=== PATIENT | female | born 1955 | race Hispanic/Latino ===

== ENCOUNTER 2017-08-07 09:52 | Day surgery (SDC) | payer MEDICARE ==
[~2017-08-07] VITALS: Ht 154.9 cm; Wt 59.1 kg
[~2017-08-07 09:52] MED LIST: INSU100V12 SQ; LEVO175T9 PO; LISI-613 PO; METF10004 PO; SENN1TAB6 PO; SIMV20TA6 PO; SODIUM CHLORIDE 0.9% 1000ML 1,000 ML IV ONE
[2017-08-07 11:00] VITALS: BP 144/84
[2017-08-07] MEDS ORDERED: PROPOFOL 10 MG/ML 20ML VIAL IV ONE (11:28)
[2017-08-07 11:43] VITALS: BP 101/57
== END 2017-08-07 12:24 | disposition home or self-care (01) ==
LOC: ENDO 09:52 → DAH 09:52 → ENDO 12:24
PROVIDERS: ATTEND Internal Medicine Gastroenterology
DX: Z08 Encounter for follow-up examination after completed treatment for malignant neoplasm (principal); K57.30 Diverticulosis of large intestine without perforation or abscess without bleeding; Z98.0 Intestinal bypass and anastomosis status; Z79.899 Other long term (current) drug therapy; I10 Essential (primary) hypertension; E78.4 Other hyperlipidemia; E11.9 Type 2 diabetes mellitus without complications; E03.8 Other specified hypothyroidism; M19.90 Unspecified osteoarthritis, unspecified site; Z85.038 Personal history of other malignant neoplasm of large intestine; Z86.010 Personal history of colon polyps; Z79.4 Long term (current) use of insulin; Z90.710 Acquired absence of both cervix and uterus
CPT/HCPCS: 82948; A4606; J2704; J7030

== ENCOUNTER → 2022-09-17 | Outpatient (CLI) | payer MEDICARE ==
[~2022-09-17] MED LIST changes: +ASPI-1197 PO; +ATOR40TA69 PO; +CARV6.25 PO; +CHOL100046 PO; +CLOP-31 PO; -INSU100V12 SQ; +Isosorbide Mono 30MG Sr Tab PO; +LEVO175C2 PO; -LEVO175T9 PO; -LISI-613 PO; +LOSA25TA41 PO; -METF10004 PO; +MUPI15CR12 TP; +PANT40TA54 PO; +REGADENOSON 0.4 MG/5 ML PF SYG IVP ONE; +SEMA3TAB4 PO; -SENN1TAB6 PO; -SIMV20TA6 PO; -SODIUM CHLORIDE 0.9% 1000ML 1,000 ML IV ONE
== END | disposition home or self-care (01) ==
LOC: SHCH 08:33
PROVIDERS: ATTEND Internal Medicine Cardiovascular Disease
DX: I21.4 Non-ST elevation (NSTEMI) myocardial infarction (principal)
CPT/HCPCS: 78452; 96374; 93017; J2785; A9500 ×2

== ENCOUNTER 2023-05-07 14:26 | Observation (INO) | payer MEDICARE ==
[~2023-05-07] VITALS: Ht 154.9 cm; Wt 64.8 kg
[~2023-05-07 14:26] MED LIST changes: -REGADENOSON 0.4 MG/5 ML PF SYG IVP ONE
[2023-05-07 15:48] LABS: BASOPHILS # (AUTO) 0.06 K/uL (0.00-0.20); BASOPHILS % (AUTO) 0.3 % (0.0-5.0); EOSINOPHILS # (AUTO) 0.02 K/uL (0.00-0.70); EOSINOPHILS % (AUTO) 0.1 % (0.0-8.0); HEMATOCRIT 30.2 % (36-48); IMMATURE GRANULOCYTE ABSOLUTE 0.21 K/uL (0-1); LYMPHOCYTES % (AUTO) 10.5 % (21.0-51.0); MEAN CORPUSCULAR HEMOGLOBIN 29.7 pg (27.0-33.0); MEAN CORPUSCULAR HGB CONC 33.8 g/dL (32.0-36.0); MONOCYTES # (AUTO) 1.8 K/uL (0.1-1.0); MONOCYTES % (AUTO) 9.9 % (3.0-13.0); NEUTROPHILS # (AUTO) 14.5 K/uL (1.8-7.7); NEUTROPHILS % (AUTO) 78.1 % (40.0-77.0); PLATELET COUNT (AUTO) 301 K/uL (130-400); RED BLOOD CELL COUNT(AUTO) 3.43 MIL/uL (4.00-5.50); WHITE BLOOD COUNT (AUTO) 18.5 K/uL (4.8-10.8)
[2023-05-07 16:03] LABS: CREATININE 1.8 mg/dL (0.5-1.5); POTASSIUM 3.7 mmol/L (3.5-5.1)
[2023-05-07 16:08] LABS: ALBUMIN 2.6 g/dL (3.5-5.0); BILIRUBIN,TOTAL 0.6 mg/dL (0.2-1.0); TOTAL PROTEIN, SERUM 6.1 g/dL (6.0-8.3)
[2023-05-07 16:11] LABS: B-TYPE NATRIURETIC PEPTIDE 2150 pg/mL (0-100)
[2023-05-07] MEDS ORDERED: ASPIRIN 325MG TAB PO ONE (17:00)
[2023-05-07] MEDS ORDERED: ONDANSETRON 4MG INJ IV PRN (19:30)
[2023-05-07] MEDS ORDERED: LACTULOSE 20 GM/30 ML UDCUP PO PRN (19:30)
[2023-05-07] MEDS ORDERED: ACETAMINOPHEN 325 MG TAB PO PRN ×2 (19:30)
[2023-05-07 20:58] LABS: HEMOGLOBIN A1C 8.2 % (4.0-6.0)
[2023-05-07 20:58] LABS: CHOLESTEROL 113 mg/dL (<200); HDL CHOLESTEROL 77 mg/dL (35-85); LDL DIRECT 29 mg/dL (0-99); TRIGLYCERIDES 98 mg/dL (30-200)
[2023-05-07] MEDS: INSULIN HUMULIN R 100 UNIT/ML 3ML SQ SCH (21:00)
[2023-05-07] MEDS: METOPROLOL TARTRATE 25 MG TAB PO SCH (21:10)
[2023-05-07] MEDS: FAMOTIDINE 20MG TAB PO SCH (21:10)
[2023-05-07 22:46] VITALS: O2SAT 99
[2023-05-07] MEDS ORDERED: INSULIN HUMULIN R 100 UNIT/ML 3ML SQ STA (22:48)
[2023-05-07 23:00] VITALS: BP 118/58; PULSE 68; RESP 18
[2023-05-07] MEDS ORDERED: ISOS30TA92 PO (23:07)
[2023-05-07] MEDS ORDERED: AMLO-257 PO (23:10)
[2023-05-07] MEDS ORDERED: SEVE800T7 PO (23:11)
[2023-05-07] MEDS ORDERED: INSU100V3 SQ (23:14)
[2023-05-08] VITALS: BP 118/58; PULSE 68; RESP 18
[2023-05-08 04:00] VITALS: BP 122/59; PULSE 64; RESP 18
[2023-05-08] MEDS: INSULIN HUMULIN R 100 UNIT/ML 3ML SQ SCH ×2 (06:29→12:45)
[2023-05-08 08:00] VITALS: BP 148/72; PULSE 70; RESP 16
[2023-05-08] MEDS: METOPROLOL TARTRATE 25 MG TAB PO SCH (08:31)
[2023-05-08] MEDS: FAMOTIDINE 20MG TAB PO SCH (08:31)
[2023-05-08] MEDS ORDERED: POLYETHYLENE GLYCOL 3350 17 GM POWD.PACK PO SCH (09:00)
[2023-05-08] MEDS ORDERED: ISOSORBIDE MONO 30MG SR TAB PO SCH (09:00)
[2023-05-08] MEDS ORDERED: Vitamin B Complex/Vit C/Folic Acid PO SCH (09:00)
[2023-05-08] MEDS ORDERED: CLOPIDOGREL 75MG TAB PO SCH (09:00)
[2023-05-08] MEDS ORDERED: ASPIRIN 81 MG EC TAB PO SCH (09:00)
[2023-05-08] MEDS ORDERED: ASPIRIN 81MG CHEW TAB PO SCH (09:00)
[2023-05-08] MEDS ORDERED: LEVOFLOXACIN 500 MG/D5W 100 ML 100 ML IV ONE (09:30)
[2023-05-08] MEDS ORDERED: METRONIDAZOLE 500 MG TABLET PO SCH (09:30)
[2023-05-08 09:35] LABS: BASOPHILS # (AUTO) 0.05 K/uL (0.00-0.20); BASOPHILS % (AUTO) 0.4 % (0.0-5.0); EOSINOPHILS # (AUTO) 0.13 K/uL (0.00-0.70); EOSINOPHILS % (AUTO) 1.1 % (0.0-8.0); HEMATOCRIT 29.7 % (36-48); IMMATURE GRANULOCYTE ABSOLUTE 0.06 K/uL (0-1); LYMPHOCYTES # (AUTO) 1.6 K/uL (1.0-4.8); LYMPHOCYTES % (AUTO) 13.5 % (21.0-51.0); MEAN CORPUSCULAR HEMOGLOBIN 29.7 pg (27.0-33.0); MEAN CORPUSCULAR HGB CONC 33.3 g/dL (32.0-36.0); MEAN CORPUSCULAR VOLUME 89.2 fL (79-99); MONOCYTES # (AUTO) 1.6 K/uL (0.1-1.0); MONOCYTES % (AUTO) 13.7 % (3.0-13.0); NEUTROPHILS # (AUTO) 8.2 K/uL (1.8-7.7); NEUTROPHILS % (AUTO) 70.8 % (40.0-77.0); PLATELET COUNT (AUTO) 293 K/uL (130-400); RED BLOOD CELL COUNT(AUTO) 3.33 MIL/uL (4.00-5.50); RED CELL DISTRIBUTION WIDTH 15.3 % (11.0-15.5); WHITE BLOOD COUNT (AUTO) 11.6 K/uL (4.8-10.8)
[2023-05-08 09:44] LABS: CREATININE 2.8 mg/dL (0.5-1.5); POTASSIUM 3.8 mmol/L (3.5-5.1)
[2023-05-08 09:49] LABS: ALBUMIN 2.6 g/dL (3.5-5.0); BILIRUBIN,TOTAL 0.4 mg/dL (0.2-1.0); TOTAL PROTEIN, SERUM 6.8 g/dL (6.0-8.3)
[2023-05-08 12:00] VITALS: BP 124/56; PULSE 66; RESP 18
[2023-05-08] MEDS ORDERED: SEVELAMER HCL 800 MG TABLET PO SCH (12:00)
[2023-05-08] MEDS ORDERED: INSULIN HUMULIN R 100 UNIT/ML 3ML SQ SCH (17:00)
[2023-05-08] MEDS ORDERED: CARVEDILOL 12.5 MG TABLET PO SCH (21:00)
[2023-05-08] MEDS ORDERED: INSULIN GLARGINE 100 UNITS/ML 10 ML VIAL SQ SCH (21:00)
[2023-05-08] MEDS ORDERED: ATORVASTATIN 40 MG TABLET PO SCH (21:00)
[2023-05-08] MEDS ORDERED: AMLODIPINE 5 MG TAB PO SCH (21:00)
[2023-05-08] MEDS ORDERED: ATORVASTATIN 20 MG TABLET PO SCH (21:00)
[2023-05-09] MEDS ORDERED: LEVOTHYROXINE 125 MCG TABLET PO SCH (06:30)
== END 2023-05-08 18:30 | disposition home or self-care (01) ==
LOC: EDH 14:26 → EDHIP 19:24 → UNDOADMOB 19:35 → EDHIP 19:35 → UNDOADMOB 19:36 → EDHIP 19:54 → 4AH 22:23 → EDHIP 22:23
PROVIDERS: ADMIT Hospitalist; ATTEND Hospitalist
DX: I13.2 Hypertensive heart and chronic kidney disease with heart failure and with stage 5 chronic kidney disease, or end stage renal disease (principal); E11.22 Type 2 diabetes mellitus with diabetic chronic kidney disease; I50.33 Acute on chronic diastolic (congestive) heart failure; N18.6 End stage renal disease; E87.70 Fluid overload, unspecified; D72.829 Elevated white blood cell count, unspecified; E87.1 Hypo-osmolality and hyponatremia; E03.9 Hypothyroidism, unspecified; E78.00 Pure hypercholesterolemia, unspecified; F41.9 Anxiety disorder, unspecified; K21.9 Gastro-esophageal reflux disease without esophagitis; I5A Non-ischemic myocardial injury (non-traumatic); K59.00 Constipation, unspecified; Z79.899 Other long term (current) drug therapy; Z85.038 Personal history of other malignant neoplasm of large intestine; Z99.2 Dependence on renal dialysis; Z88.0 Allergy status to penicillin; Z86.718 Personal history of other venous thrombosis and embolism; Z86.16 Personal history of COVID-19
CPT/HCPCS: 83036; 84484 ×3; 80061; 80053 ×2; 83880; 85025 ×2; 82948 ×4; 36415 ×2; 74018; 71045; 93970; 99291; 93005 ×3; 96365; 87040 ×2; J1815 ×2; G0378 ×23; J1956

== ENCOUNTER 2023-05-22 16:47 | Emergency (ER) | payer MEDICARE ==
[~2023-05-22] VITALS: Ht 154.9 cm; Wt 59.9 kg
[~2023-05-22 16:47] MED LIST changes: +AMLO-257 PO; +INSU100V3 SQ; +ISOS30TA92 PO; -Isosorbide Mono 30MG Sr Tab PO; -LOSA25TA41 PO; -MUPI15CR12 TP; -PANT40TA54 PO; -SEMA3TAB4 PO; +SEVE800T7 PO
[2023-05-22 17:48] LABS: BASOPHILS # (AUTO) 0.04 K/uL (0.00-0.20); BASOPHILS % (AUTO) 0.3 % (0.0-5.0); EOSINOPHILS # (AUTO) 0.04 K/uL (0.00-0.70); EOSINOPHILS % (AUTO) 0.3 % (0.0-8.0); HEMATOCRIT 27.6 % (36-48); IMMATURE GRANULOCYTE ABSOLUTE 0.09 K/uL (0-1); LYMPHOCYTES # (AUTO) 1.5 K/uL (1.0-4.8); LYMPHOCYTES % (AUTO) 11.9 % (21.0-51.0); MEAN CORPUSCULAR HGB CONC 31.9 g/dL (32.0-36.0); MEAN CORPUSCULAR VOLUME 91.1 fL (79-99); MONOCYTES % (AUTO) 16.6 % (3.0-13.0); NEUTROPHILS # (AUTO) 8.6 K/uL (1.8-7.7); NEUTROPHILS % (AUTO) 70.2 % (40.0-77.0); PLATELET COUNT (AUTO) 502 K/uL (130-400); RED BLOOD CELL COUNT(AUTO) 3.03 MIL/uL (4.00-5.50); RED CELL DISTRIBUTION WIDTH 14.9 % (11.0-15.5); WHITE BLOOD COUNT (AUTO) 12.2 K/uL (4.8-10.8)
[2023-05-22 18:07] LABS: ALBUMIN 2.4 g/dL (3.5-5.0); BILIRUBIN,TOTAL 0.3 mg/dL (0.2-1.0); CREATININE 4.3 mg/dL (0.5-1.5); POTASSIUM 3.9 mmol/L (3.5-5.1); TOTAL PROTEIN, SERUM 7.2 g/dL (6.0-8.3)
[2023-05-22] MEDS ORDERED: ALBU2.5V2 IH (20:45)
[2023-05-22 21:59] LABS: APPEARANCE,URINE TURBID (CLEAR); BILIRUBIN,URINE NEGATIVE (NEGATIVE); COLOR,URINE LIGHT-ORANGE (YELLOW); GLUCOSE, URINE (UA) 70 mg/dL (NEGATIVE); KETONES,URINE NEGATIVE (NEGATIVE); LEUKOCYTE ESTERASE ,URINE 500 Leu/uL (NEGATIVE); NITRATE,URINE NEGATIVE (NEGATIVE); OCCULT BLOOD,URINE SMALL (NEGATIVE); PH,URINE 5.5 (5.0-8.0); PROTEIN,URINE 200 mg/dL (NEGATIVE); UROBILINOGEN,URINE 0.2 mg/dL (0.2-1.0)
[2023-05-22 22:00] LABS: ADD UA MICROSCOPIC YES
[2023-05-22] MEDS ORDERED: PEG 3350/NA SULF,BICARB,CL/KCL 4000 ML SOLN PO ONE (22:00)
[2023-05-22 22:05] LABS: SARS-CoV-2, RNA, NAAT NEGATIVE SARS CoV-2 (NEGATIVE)
[2023-05-22 22:06] LABS: BACTERIA,URINE RARE /HPF (None Seen); MUCUS,URINE RARE LPF (None Seen); NON-SQUAMOUS EPITHELIAL CELL 1 /HPF (0-2); RBC,URINE 26-50 /HPF (0-1); SQUAMOUS EPITHELIAL CELL,UR MOD /HPF (0-2); UNCLASSIFIED CRYSTAL 11 /HPF (None Seen); WBC CLUMP FEW /HPF (0-1); WBC,URINE >100 /HPF (0-1); YEAST,URINE BUDDING FEW /HPF (None Seen)
[2023-05-22 22:08] LABS: INFLUENZA TYPE A Negative For Type A (NEGATIVE)
[2023-05-22] MEDS ORDERED: DOCU-116 PO (22:20)
[2023-05-22 22:23] LABS: INFLUENZA TYPE B Positive For Type B (NEGATIVE)
[2023-05-22 23:51] VITALS: BP 144/62; PULSE 78; RESP 18; O2SAT 100
== END 2023-05-22 23:53 | disposition home or self-care (01) ==
LOC: EDH 16:47
DX: K59.00 Constipation, unspecified (principal); K80.20 Calculus of gallbladder without cholecystitis without obstruction; J45.909 Unspecified asthma, uncomplicated; E11.9 Type 2 diabetes mellitus without complications; E03.9 Hypothyroidism, unspecified; E78.00 Pure hypercholesterolemia, unspecified; Z79.02 Long term (current) use of antithrombotics/antiplatelets; Z79.82 Long term (current) use of aspirin; Z79.890 Hormone replacement therapy; Z79.899 Other long term (current) drug therapy; Z88.0 Allergy status to penicillin; Z99.2 Dependence on renal dialysis; Z20.822 Contact with and (suspected) exposure to COVID-19
CPT/HCPCS: 36415; 71045; 74176; 80053; 81001; 83605; 85025; 87040; 87088; 87635; 87804; 93005

== ENCOUNTER → 2023-06-25 | Outpatient (CLI) | payer MEDICARE ==
[~2023-06-25] MED LIST changes: +ALBU2.5V2 IH; +DOCU-116 PO; +LIDOCAINE HCL 4% LTA SOL 4 ML VIAL TP ONE
== END | disposition home or self-care (01) ==
LOC: WHH 10:38
PROVIDERS: ATTEND Podiatrist Foot & Ankle Surgery
DX: E11.621 Type 2 diabetes mellitus with foot ulcer (principal); L97.511 Non-pressure chronic ulcer of other part of right foot limited to breakdown of skin; E11.22 Type 2 diabetes mellitus with diabetic chronic kidney disease; I13.2 Hypertensive heart and chronic kidney disease with heart failure and with stage 5 chronic kidney disease, or end stage renal disease; N18.6 End stage renal disease; I50.89 Other heart failure; E11.51 Type 2 diabetes mellitus with diabetic peripheral angiopathy without gangrene; E78.00 Pure hypercholesterolemia, unspecified; E11.21 Type 2 diabetes mellitus with diabetic nephropathy; E55.9 Vitamin D deficiency, unspecified; E78.5 Hyperlipidemia, unspecified; E03.9 Hypothyroidism, unspecified; J45.909 Unspecified asthma, uncomplicated; F41.9 Anxiety disorder, unspecified; K21.9 Gastro-esophageal reflux disease without esophagitis; Z99.2 Dependence on renal dialysis; Z98.49 Cataract extraction status, unspecified eye; Z93.3 Colostomy status; Z90.710 Acquired absence of both cervix and uterus; Z87.891 Personal history of nicotine dependence; Z85.038 Personal history of other malignant neoplasm of large intestine; Z79.82 Long term (current) use of aspirin; Z79.899 Other long term (current) drug therapy
CPT/HCPCS: 73630; G0463; A4450

== ENCOUNTER → 2023-07-02 | Outpatient (CLI) | payer MEDICARE | END | disposition home or self-care (01) | LOC: WHH 10:45 | PROVIDERS: ATTEND Podiatrist Foot & Ankle Surgery | DX: E11.621 Type 2 diabetes mellitus with foot ulcer (principal); L97.511 Non-pressure chronic ulcer of other part of right foot limited to breakdown of skin; E11.22 Type 2 diabetes mellitus with diabetic chronic kidney disease; I13.2 Hypertensive heart and chronic kidney disease with heart failure and with stage 5 chronic kidney disease, or end stage renal disease; N18.6 End stage renal disease; I50.89 Other heart failure; E11.51 Type 2 diabetes mellitus with diabetic peripheral angiopathy without gangrene; E78.00 Pure hypercholesterolemia, unspecified; E11.21 Type 2 diabetes mellitus with diabetic nephropathy; E55.9 Vitamin D deficiency, unspecified; E03.9 Hypothyroidism, unspecified; J45.909 Unspecified asthma, uncomplicated; F41.9 Anxiety disorder, unspecified; K21.9 Gastro-esophageal reflux disease without esophagitis; Z99.2 Dependence on renal dialysis; Z98.49 Cataract extraction status, unspecified eye; Z93.3 Colostomy status; Z90.710 Acquired absence of both cervix and uterus; Z87.891 Personal history of nicotine dependence; Z85.038 Personal history of other malignant neoplasm of large intestine; Z79.82 Long term (current) use of aspirin; Z79.899 Other long term (current) drug therapy | CPT/HCPCS: G0463 ==

== ENCOUNTER → 2023-07-16 | Outpatient (CLI) | payer MEDICARE | END | disposition home or self-care (01) | LOC: WHH 09:51 | PROVIDERS: ATTEND Podiatrist Foot & Ankle Surgery | DX: E11.621 Type 2 diabetes mellitus with foot ulcer (principal); L97.512 Non-pressure chronic ulcer of other part of right foot with fat layer exposed; E11.22 Type 2 diabetes mellitus with diabetic chronic kidney disease; I13.2 Hypertensive heart and chronic kidney disease with heart failure and with stage 5 chronic kidney disease, or end stage renal disease; N18.6 End stage renal disease; I50.9 Heart failure, unspecified; E11.21 Type 2 diabetes mellitus with diabetic nephropathy; E11.51 Type 2 diabetes mellitus with diabetic peripheral angiopathy without gangrene; E78.00 Pure hypercholesterolemia, unspecified; E55.9 Vitamin D deficiency, unspecified; E03.9 Hypothyroidism, unspecified; H54.8 Legal blindness, as defined in USA; G47.33 Obstructive sleep apnea (adult) (pediatric); J45.909 Unspecified asthma, uncomplicated; K21.9 Gastro-esophageal reflux disease without esophagitis; F41.9 Anxiety disorder, unspecified; Z99.2 Dependence on renal dialysis; Z98.49 Cataract extraction status, unspecified eye; Z93.3 Colostomy status; Z90.710 Acquired absence of both cervix and uterus; Z87.891 Personal history of nicotine dependence; Z85.038 Personal history of other malignant neoplasm of large intestine; Z79.899 Other long term (current) drug therapy; Z79.82 Long term (current) use of aspirin | CPT/HCPCS: 11042; A6209 ×2; A4450 ==

== ENCOUNTER → 2023-07-30 | Outpatient (CLI) | payer MEDICARE ==
[~2023-07-30] MED LIST changes: +SEVE800T50 PO; -SEVE800T7 PO
== END | disposition home or self-care (01) ==
LOC: WHH 09:52
PROVIDERS: ATTEND Podiatrist Foot & Ankle Surgery
DX: E11.621 Type 2 diabetes mellitus with foot ulcer (principal); L97.512 Non-pressure chronic ulcer of other part of right foot with fat layer exposed; E11.22 Type 2 diabetes mellitus with diabetic chronic kidney disease; I13.2 Hypertensive heart and chronic kidney disease with heart failure and with stage 5 chronic kidney disease, or end stage renal disease; N18.6 End stage renal disease; I50.9 Heart failure, unspecified; E11.21 Type 2 diabetes mellitus with diabetic nephropathy; E11.51 Type 2 diabetes mellitus with diabetic peripheral angiopathy without gangrene; E78.00 Pure hypercholesterolemia, unspecified; E55.9 Vitamin D deficiency, unspecified; E03.9 Hypothyroidism, unspecified; H54.8 Legal blindness, as defined in USA; G47.33 Obstructive sleep apnea (adult) (pediatric); J45.909 Unspecified asthma, uncomplicated; K21.9 Gastro-esophageal reflux disease without esophagitis; F41.9 Anxiety disorder, unspecified; Z99.2 Dependence on renal dialysis; Z98.49 Cataract extraction status, unspecified eye; Z93.3 Colostomy status; Z90.710 Acquired absence of both cervix and uterus; Z87.891 Personal history of nicotine dependence; Z85.038 Personal history of other malignant neoplasm of large intestine; Z79.82 Long term (current) use of aspirin; Z79.899 Other long term (current) drug therapy
CPT/HCPCS: 11042; A6209

== ENCOUNTER → 2023-08-13 | Outpatient (CLI) | payer MEDICARE ==
[~2023-08-13] MED LIST changes: -SEVE800T50 PO; +SEVE800T7 PO
== END | disposition home or self-care (01) ==
LOC: WHH 09:50
PROVIDERS: ATTEND Podiatrist Foot & Ankle Surgery
DX: E11.621 Type 2 diabetes mellitus with foot ulcer (principal); L97.512 Non-pressure chronic ulcer of other part of right foot with fat layer exposed; E11.51 Type 2 diabetes mellitus with diabetic peripheral angiopathy without gangrene; E11.21 Type 2 diabetes mellitus with diabetic nephropathy; E11.22 Type 2 diabetes mellitus with diabetic chronic kidney disease; I13.2 Hypertensive heart and chronic kidney disease with heart failure and with stage 5 chronic kidney disease, or end stage renal disease; N18.6 End stage renal disease; I50.9 Heart failure, unspecified; E55.9 Vitamin D deficiency, unspecified; E03.9 Hypothyroidism, unspecified; E78.5 Hyperlipidemia, unspecified; H54.8 Legal blindness, as defined in USA; G47.33 Obstructive sleep apnea (adult) (pediatric); J45.909 Unspecified asthma, uncomplicated; K21.9 Gastro-esophageal reflux disease without esophagitis; F41.9 Anxiety disorder, unspecified; Z99.2 Dependence on renal dialysis; Z98.49 Cataract extraction status, unspecified eye; Z93.3 Colostomy status; Z90.710 Acquired absence of both cervix and uterus; Z87.891 Personal history of nicotine dependence; Z85.038 Personal history of other malignant neoplasm of large intestine; Z79.82 Long term (current) use of aspirin; Z79.899 Other long term (current) drug therapy
CPT/HCPCS: 11042; A6209; A4450

== ENCOUNTER → 2023-08-27 | Outpatient (CLI) | payer MEDICARE | END | disposition home or self-care (01) | LOC: WHH 09:36 | PROVIDERS: ATTEND Podiatrist Foot & Ankle Surgery | DX: E11.621 Type 2 diabetes mellitus with foot ulcer (principal); L97.512 Non-pressure chronic ulcer of other part of right foot with fat layer exposed; E11.51 Type 2 diabetes mellitus with diabetic peripheral angiopathy without gangrene; E11.21 Type 2 diabetes mellitus with diabetic nephropathy; I13.2 Hypertensive heart and chronic kidney disease with heart failure and with stage 5 chronic kidney disease, or end stage renal disease; N18.6 End stage renal disease; I50.89 Other heart failure; E55.9 Vitamin D deficiency, unspecified; E03.9 Hypothyroidism, unspecified; E78.5 Hyperlipidemia, unspecified; H54.8 Legal blindness, as defined in USA; G47.33 Obstructive sleep apnea (adult) (pediatric); J45.909 Unspecified asthma, uncomplicated; K21.9 Gastro-esophageal reflux disease without esophagitis; F41.9 Anxiety disorder, unspecified; Z99.2 Dependence on renal dialysis; Z98.49 Cataract extraction status, unspecified eye; Z93.3 Colostomy status; Z90.710 Acquired absence of both cervix and uterus; Z87.891 Personal history of nicotine dependence; Z85.038 Personal history of other malignant neoplasm of large intestine; Z79.82 Long term (current) use of aspirin; Z79.899 Other long term (current) drug therapy | CPT/HCPCS: 11042; A6209 ==

== ENCOUNTER 2023-09-10 09:57 | Outpatient (CLI) | payer MEDICARE ==
[~2023-09-10 09:57] MED LIST changes: -LIDOCAINE HCL 4% LTA SOL 4 ML VIAL TP ONE
== END 2023-09-10 13:27 | disposition home or self-care (01) ==
LOC: WHH 09:57
PROVIDERS: ATTEND Podiatrist Foot & Ankle Surgery
DX: E11.621 Type 2 diabetes mellitus with foot ulcer (principal); L97.511 Non-pressure chronic ulcer of other part of right foot limited to breakdown of skin; E11.51 Type 2 diabetes mellitus with diabetic peripheral angiopathy without gangrene; E11.21 Type 2 diabetes mellitus with diabetic nephropathy; I13.2 Hypertensive heart and chronic kidney disease with heart failure and with stage 5 chronic kidney disease, or end stage renal disease; N18.6 End stage renal disease; I50.89 Other heart failure; E55.9 Vitamin D deficiency, unspecified; E03.9 Hypothyroidism, unspecified; E78.5 Hyperlipidemia, unspecified; H54.8 Legal blindness, as defined in USA; J45.909 Unspecified asthma, uncomplicated; K21.9 Gastro-esophageal reflux disease without esophagitis; G47.33 Obstructive sleep apnea (adult) (pediatric); F41.9 Anxiety disorder, unspecified; Z99.2 Dependence on renal dialysis; Z98.49 Cataract extraction status, unspecified eye; Z93.3 Colostomy status; Z90.710 Acquired absence of both cervix and uterus; Z87.891 Personal history of nicotine dependence; Z85.038 Personal history of other malignant neoplasm of large intestine; Z79.82 Long term (current) use of aspirin; Z79.899 Other long term (current) drug therapy
CPT/HCPCS: G0463

== ENCOUNTER 2023-12-21 10:50 | Emergency (ER) | payer MEDICARE ==
[~2023-12-21] VITALS: Ht 154.9 cm; Wt 57.6 kg
[~2023-12-21 10:50] MED LIST changes: -AMLO-257 PO; -CARV6.25 PO; +PANT40TA54 PO
[2023-12-21 11:33] LABS: BASOPHILS # (AUTO) 0.13 K/uL (0.00-0.20); BASOPHILS % (AUTO) 1.3 % (0.0-5.0); EOSINOPHILS # (AUTO) 0.47 K/uL (0.00-0.70); EOSINOPHILS % (AUTO) 4.8 % (0.0-8.0); HEMATOCRIT 29.6 % (36-48); IMMATURE GRANULOCYTE ABSOLUTE 0.04 K/uL (0-1); LYMPHOCYTES # (AUTO) 2.6 K/uL (1.0-4.8); LYMPHOCYTES % (AUTO) 26.9 % (21.0-51.0); MEAN CORPUSCULAR HEMOGLOBIN 31.3 pg (27.0-33.0); MEAN CORPUSCULAR HGB CONC 33.1 g/dL (32.0-36.0); MEAN CORPUSCULAR VOLUME 94.6 fL (79-99); MONOCYTES # (AUTO) 0.8 K/uL (0.1-1.0); MONOCYTES % (AUTO) 8.5 % (3.0-13.0); NEUTROPHILS # (AUTO) 5.7 K/uL (1.8-7.7); NEUTROPHILS % (AUTO) 58.1 % (40.0-77.0); PLATELET COUNT (AUTO) 391 K/uL (130-400); RED BLOOD CELL COUNT(AUTO) 3.13 MIL/uL (4.00-5.50); RED CELL DISTRIBUTION WIDTH 17.6 % (11.0-15.5); WHITE BLOOD COUNT (AUTO) 9.8 K/uL (4.8-10.8)
[2023-12-21 11:44] LABS: ALBUMIN 2.7 g/dL (3.5-5.0); CARBON DIOXIDE 29 mmol/L (21-32); CHLORIDE 98 mmol/L (101-111); CREATININE 3.5 mg/dL (0.5-1.0); GLOMERULAR FILTR. RATE CALC 14 mL/min (>90); GLUCOSE,RANDOM 141 mg/dL (70-105); SODIUM SERUM 135 mmol/L (136-145); UREA NITROGEN, BLOOD 26 mg/dL (7-18)
[2023-12-21 11:48] LABS: ALANINE AMINOTRANSFERASE < 6 U/L (12-78); ASPARTATE AMINOTRANSFERASE 12 U/L (10-37); BILIRUBIN,TOTAL 0.6 mg/dL (0.2-1.0); TOTAL PROTEIN, SERUM 6.9 g/dL (6.0-8.3)
[2023-12-21 12:48] LABS: BILIRUBIN,URINE NEGATIVE (NEGATIVE); GLUCOSE, URINE (UA) NEGATIVE (NEGATIVE); KETONES,URINE NEGATIVE (NEGATIVE); LEUKOCYTE ESTERASE ,URINE 500 Leu/uL (NEGATIVE); NITRATE,URINE NEGATIVE (NEGATIVE); OCCULT BLOOD,URINE MODERATE (NEGATIVE); PH,URINE 6.5 (5.0-8.0); PROTEIN,URINE 200 mg/dL (NEGATIVE)
[2023-12-21 12:50] LABS: ADD UA MICROSCOPIC YES; APPEARANCE,URINE CLOUDY (CLEAR); COLOR,URINE LIGHT-YELLOW (YELLOW)
[2023-12-21 13:01] LABS: MAGNESIUM 1.8 mg/dL (1.80-2.40); THYROID STIMULATING HORMONE 15.76 uIU/mL (0.36-3.74)
[2023-12-21] MEDS ORDERED: IOHEXOL-350 75 ML VIAL IV ONE (13:03)
[2023-12-21 13:12] LABS: BACTERIA,URINE MOD /HPF (None Seen); SQUAMOUS EPITHELIAL CELL,UR FEW /HPF (0-2); WBC CLUMP MANY /HPF (0-1); WBC,URINE TNTC /HPF (0-1)
[2023-12-21] MEDS: AZTREONAM 1 GM VIAL IVPB SCH (14:29)
[2023-12-21] MEDS ORDERED: niCARDIpine 25MG INJ 25 MG in 0.9% NACL 250ML 240 ML IV SCH (16:30)
[2023-12-21] MEDS: niCARDIpine 25MG INJ IV ONE (16:34)
[2023-12-21 17:38] VITALS: BP 121/57; PULSE 68; RESP 17; O2SAT 99
== END 2023-12-21 18:58 | disposition short-term general hospital (02) ==
LOC: EDH 10:50
DX: I61.8 Other nontraumatic intracerebral hemorrhage (principal); E11.22 Type 2 diabetes mellitus with diabetic chronic kidney disease; I12.0 Hypertensive chronic kidney disease with stage 5 chronic kidney disease or end stage renal disease; N18.6 End stage renal disease; E78.00 Pure hypercholesterolemia, unspecified; M19.90 Unspecified osteoarthritis, unspecified site; Z79.82 Long term (current) use of aspirin; Z79.899 Other long term (current) drug therapy; Z88.0 Allergy status to penicillin; Z88.1 Allergy status to other antibiotic agents; Z90.710 Acquired absence of both cervix and uterus; Z98.890 Other specified postprocedural states
CPT/HCPCS: 99285; 70450; 96365; 96375; 84443; 83735; 80053; 82140; 85025; 87086 ×2; 87186; 81001; 36415; 74177; J3490 ×3; Q9967; J7050